=== PATIENT | male | born 1980 | race Caucasian/White ===

== ENCOUNTER 2021-03-10 17:13 | Emergency (ER) | payer OTHER, SELFPAY ==
--- NOTE | ~2021-03-10 | CT_ITS ---
EXAMINATION: CT cervical spine wo con DATE: 03/10/2021 17:44 INDICATION: Neck pain after fall TECHNIQUE: Computed tomography (CT) of the cervical spine was performed without intravenous contrast. The dose-length product was 448 mGy-cm. Automated exposure control and iterative reconstruction tech nique were employed. COMPARISON: None FINDINGS: There are mild uncinate degenerative changes at C6-7 and C7-T1. There is mild dextrocurvatu re of the cervical spine. Odontoid process within normal limits. No evidence for perched facet. Strai ghtening of cervical lordosis. Mild disc narrowing at C5-6 and C6-7. No acute fracture or traumatic m alalignment. Lung apices are normal. No significant paraspinal soft tissue abnormality. IMPRESSION: 1. No acute abnormality of the cervical spine. 2: Mild cervical spondylosis. Reviewed, dictated and finalized at location A.
--- NOTE | ~2021-03-10 | CT_ITS ---
EXAMINATION: CT BRAIN W/O DATE: 03/10/2021 17:44 INDICATION: Seizure. Fall. Head laceration. TECHNIQUE: Computed tomography (CT) of the head was performed without intravenous contrast. The dose- length product was 681.00 mGy-cm. Automated exposure control and iterative reconstruction technique w ere employed. COMPARISON: No prior studies for comparison. FINDINGS: Normal brain parenchymal volume for age. Normal archuleta-white differentiation. No acute intrac ranial hemorrhage, infarction, mass or mass effect. There is left parietal scalp swelling. No ventriculomegaly or midline shift. Midline sagittal images demonstrate a normal corpus callosum, c raniovertebral junction and sella turcica. Basilar cisterns are patent. Paranasal sinuses and mastoids are pneumatized. No depressed skull fractures. IMPRESSION: 1. No acute intracranial abnormality. Reviewed, dictated and finalized at location A.
[2021-03-10 17:04] VITALS: O2SAT 98
[2021-03-10 17:20] VITALS: BP 172/86; PULSE 111; RESP 17; TEMP 36.9; O2SAT 95
--- NOTE | 2021-03-10 17:22 | ECG_ITS ---
Measurements Intervals [place] Rate: 104 P: 94 IN: 254 QRS: 38 QRSD: 7 T: 186 QT: 387 QTc: 510 Interpretive Statements SINUS TACHYCARDIA LEFT ATRIAL ENLARGEMENT RIGHT BUNDLE BRANCH BLOCK BASELINE ARTIFACT- I, II, III, AVR, AVL, AVF, V1-V6 ABNORMAL ECG Electronically Signed On 03-10-2021 20:00:18 CDT by Julio Woods D.O.
--- NOTE | 2021-03-10 17:26 | ED.GENADULT ---
HPI - General Adult General Chief complaint: Seizure Stated complaint: SEIZURE Source: patient History of Present Illness HPI narrative: Patient is a 41 y/o male brought in by EMS for seizure. He reportedly was in a comic book store, had a seizure and fell. He struck his head and has laceration on left side of his occipital scalp. He also complains of left side tongue pain. He states that he does not have recollection of the fall, but does recall being at a comic book store. He states that he has history of seizure, but has not had recent seizure. He is not on any meds for seizure currently. His last Tetanus shot was 1 year ago. Related Data Allergies Allergy/AdvReac Type Severity Reaction Status Date / Time No Known Allergies Allergy Mild Unverified 04/08/12 19:39 Review of Systems Constitutional: Constitutional: Denies chills, Denies fever(s), Reports headache(s) and Denies weakness Eyes: Eyes: Denies blurry vision ENT: Reports headache(s), Reports mouth pain (left side tongue pain) and Denies neck pain Cardiovascular: Cardiovascular: Denies chest pain and Denies dyspnea Respiratory: Respiratory: Denies cough and Denies dyspnea Gastrointestinal: Gastrointestinal: Denies abdominal pain, Denies diarrhea, Denies nausea and Denies vomiting Genitourinary: Genitourinary: Denies hematuria and Denies dysuria Musculoskeletal: Musculoskeletal: Denies back pain and Denies neck pain Neurologic: Reports as per HPI, Denies headache(s), Reports convulsions and Denies weakness PMFSH Past Medical History Medical History Seizure disorder Surgical History Surgical History History of ileostomy Social History Social History Smoking status: Never smoker Exam Const: General: no acute distress and well developed Orientation/consciousness: oriented to person, oriented to place, oriented to time and patient oriented x3 HENMT: Head: normocephalic Ears: external ears normal General nose exam: Normal external nose present Mouth: Yes tongue abnormal (swelling and bruise on left side of tongue, no laceration) Eyes: General: appearance normal, both eyes and all related structures Conjunctivae: conjunctivae normal Neck: Neck: normal visual inspection and full ROM Chest: Chest palpation & inspection: normal inspection of the chest and no tenderness Resp: Effort & Inspection: normal respiratory effort Auscultation: clear to auscultation bilaterally Cardio: Rate: tachycardic Rhythm: regular rhythm GI: Inspection: other (ileostomy in right lower abdomen) GI Palp: No abdominal tenderness and Yes Soft to palpation Skin: General skin exam: normal color and turgor normal Trauma: laceration (left occipital scalp) Neuro: General: oriented to person, oriented to place, oriented to time and patient oriented x3 Cranial nerves: Yes CN's II-XII intact bilaterally Cognition (Neuro): normal cognition Speech: normal speech Motor exam (neuro): 5/5 motor strength present throughout Sensory Exam: normal sensation Coordination: [id number] test normal and pqid-qh-movb test normal Extrem: General: normal to inspection, full ROM and no pedal edema Psych: Appearance: grossly normal Mental Status: mental status grossly normal Affect: normal affect Course Reevaluation(s) Reevaluation #1: Patient wants to leave instead of being admitted. He will leave AMA. He is awake, alert and competent to make medical decision for himself. Date: 03/10/21 Consultations Consultation #1: Discussed with RADHA Mena, who agrees to admit to Dr. Ramires. Date: 03/10/21 Time: 18:37 Consultation #2: Discussed with Dr. Grimm, who recommends EEG, starting on Keppra 500 mg bid. He will consult. Date: 03/10/21 Time: 18:47 Vital Signs Vital signs: Vital Signs Pulse Oximetry 98 03/10/21 17:04 Temperat
[2021-03-10 17:46] VITALS: BP 163/112; PULSE 101; RESP 12; O2SAT 98
[2021-03-10 18:15] LABS: Basophils Absolute Auto 0.1 K/mm3 (0.0-0.1); Basophils Percent Auto 0.7 % (0.2-1.2); Eosinophils Absolute Auto 0.3 K/mm3 (0-0.3); Eosinophils Percent Auto 2.6 % (0-4.4); Hematocrit 40.1 % (42.0-52.0); Hemoglobin 13.9 g/dL (14.0-18.0); Immature Granulocyte Percent A 2.6 % (0-0.5); Lymphocytes Percent Auto 19.7 % (18.3-44.2); Mean Corpuscular HGB Conc 34.7 g/dl (32-36); Mean Corpuscular Hemoglobin 30.4 pg (26-34); Mean Corpuscular Volume 87.7 fl (80-100); Mean Platelet Volume 10.1 fl (7.4-10.4); Monocytes Absolute Auto 0.8 K/mm3 (0.1-0.6); Monocytes Percent Auto 6.5 % (2.6-8.5); Neutrophils Absolute Auto 7.9 K/mm3 (1.3-6.7); Neutrophils Percent Auto 67.9 % (45.5-73.1); Platelet Count Result 247 k/mm3 (150-375); Red Blood Count 4.57 M/mm3 (4.6-6.20); Red Cell Distribution Width 12.8 % (11.5-14.5); White Blood Count 11.7 K/mm3 (4.5-10.0)
[2021-03-10 18:24] LABS: Lactic Acid Reflex 3.6 mmol/L (0.7-2.1)
[2021-03-10 18:25] LABS: Alanine Aminotransferase 45 U/L (4-50); Alkaline Phosphatase 63 U/L (38-126); Anion Gap 12 mmol/L (8-16); Aspartate Amino Transferase 58 U/L (17-59); Bilirubin,Total 0.6 mg/dL (0.2-1.3); Blood Urea Nitrogen 16 mg/dL (9-20); Calcium 9.8 mg/dL (8.4-10.2); Carbon Dioxide 25 mmol/L (22-30); Chloride 104 mmol/L (98-107); Estimated CRCL calculation 75 ml/min; Estimated Glomerular Filt Rate > 60; Glucose 91 mg/dL (75-110); Potassium 3.6 mmol/L (3.4-5.0); Sodium 141 mmol/L (137-145)
[2021-03-10 18:30] VITALS: BP 166/88; PULSE 98; RESP 14; O2SAT 99
[2021-03-10 18:49] LABS: Add Urine Microscopic? YES; Appearance Urine Cloudy (Clear); Bacteria Urine Trace /hpf; Bilirubin Urine Negative (Negative); Blood Urine 1+ (Negative); Color Urine Yellow (Yellow); Glucose Urine UA Negative (Negative); Ketones Urine Negative (Negative); Leukocyte Esterase Ur Negative LEU/UL (Negative); Mucus Urine Rare /lpf; Nitrate Urine Negative (Negative); Protein Urine 2+ mg/dL (Negative); RBC Urine 0-2 /hpf (0-2); Specific Grav Ur 1.015 (1.001-1.035); Urobilinogen Urine Negative mg/dL (<2.0); WBC Urine 0-3 /hpf
--- NOTE | 2021-03-10 19:00 | PC.NURSE ---
assumed care of pt. Report from Charlie HUNT.
--- NOTE | 2021-03-10 20:00 | PM.IMHP ---
H&P: HPI History of Present Illness Date/Time: 03/10/21 20:00 Chief Complaint: Acute Syncope and collapse. Narrative: This is a pleasant 41-year-old male with known history of seizure disorder and known ileostomy who presented to the hospital today after suffering a syncopal episode at a [employer] book store. He remarks that he suddenly felt very dizzy and lightheaded before passing out and suffering head trauma. The patient has not had a seizure for over 10 years and describes that he used to have similar symptoms right before he would have a seizure. He does report a left-sided tongue laceration although denies any loss of urine. He also denies any chest pain or shortness of breath tonight before passing out. The patient suffered a laceration of the left side of his occiptial scalp which has been stapled in the emergency room tonight. The patient denies any focal neurological symptoms, numbness, tingling, blurry vision, double vision, facial droop, slurred speech, headache, confusion, fevers, chills, neck stiffness, shortness of breath, cough, chest pain, abdominal pain, nausea, vomiting, hematuria, diarrhea, or rectal bleeding. He is no longer taking any antiepileptic medications. Brain CT was performed emergency room which was unremarkable. ER provider has consulted Neurology, Dr. Grimm who has asked that we admit the patient to the hospital and they will evaluate him tomorrow. The patient has verbalized to me that he is now asymptomatic and wants to sign out against medical advice. I have explained to the patient that it would be in his best interest to stay in the hospital overnight and have Neurology take a look at him tomorrow although the patient is adamant about leaving as he does not want to lose his job. He has no other complaints at this time. Review of Systems Review of Systems: All systems reviewed & are unremarkable except as noted in HPI and below PMFSH Past Medical History Medical History Seizure disorder Surgical History Surgical History History of ileostomy Social History Social History Smoking status: Never smoker Comments Family Medical history is reviewed and is noncontributory Meds Home Medications and Allergies Allergies Allergy/AdvReac Type Severity Reaction Status Date / Time No Known Allergies Allergy Mild Unverified 04/08/12 19:39 Vital Signs Vital Signs - 24 hr 03/10/21 17:04 03/10/21 17:20 03/10/21 17:46 Temperature 36.9 C Pulse Rate 111 H 101 H Respiratory Rate 17 12 Blood Pressure 172/86 H 163/112 H Pulse Oximetry 98 95 98 03/10/21 18:30 Temperature Pulse Rate 98 Respiratory Rate 14 Blood Pressure 166/88 H Pulse Oximetry 99 Exam Const: General: cooperative, healthy appearing, no acute distress, alert and awake Nutritional Appearance: well nourished Orientation/consciousness: patient oriented x3 HENMT: Head: scalp lesion (L Occipital scalp laceration that has been stapled) General nose exam: Normal external nose present Face and sinus: normal facial exam Mouth: Yes oropharynx normal and Yes other (Small left-sided tongue laceration) Eyes: Pupils: Equal, round and reactive pupils present EOM: EOMs intact bilaterally Neck: Neck: supple and no JVD Thyroid: thyroid normal Lymphatic: lymphadenopathy not noted Resp: Effort & Inspection: normal respiratory effort Auscultation: clear to auscultation bilaterally Cardio: Rate: regular rate Rhythm: regular rhythm Heart sounds: no murmurs GI: Inspection: normal to inspection Auscultation: normal bowel sounds Skin: General skin exam: normal color and no rashes or lesions noted Neuro: General: patient oriented x3 Cranial nerves: Yes CN's II-XII intact bilaterally and Yes Equal, round and reactive pupils present Speech: normal speech Motor exam
[2021-03-10 21:13] LABS: Reflex Lactic Acid Yes or No Add Lactic
[2021-03-10 21:15] VITALS: BP 147/81; PULSE 88; RESP 19; O2SAT 97
== END 2021-03-10 21:15 | disposition left against medical advice (07) ==
LOC: ANHED 18:12 → ANH3MEDSUR 21:05
PROVIDERS: Emergency Provider Emergency Medicine
DX: S01.01XA Laceration without foreign body of scalp, initial encounter (principal); G40.909 Epilepsy, unspecified, not intractable, without status epilepticus; Z93.2 Ileostomy status; R00.0 Tachycardia, unspecified; I45.10 Unspecified right bundle-branch block; R94.31 Abnormal electrocardiogram [ECG] [EKG]; W18.39XA Other fall on same level, initial encounter
CPT/HCPCS: 12002; 36415; 70450; 72125; 80053; 81001; 83605; 85025; 93005; 99284

== ENCOUNTER 2022-01-15 12:01 | Emergency (ER) | payer OTHER, SELFPAY ==
[2022-01-15] VITALS (16 sets, daily range): BP systolic 131–150; BP diastolic 75–88; PULSE 100–131; RESP 11–22; TEMP 37.3; O2SAT 97–100
--- NOTE | ~2022-01-15 | CT_ITS ---
EXAMINATION: CT brain wo con, CT cervical spine wo con EXAM DATE: 01/15/2022 12:37 INDICATION: Fall, head injury, seizure. TECHNIQUE: Spiral CT of the head was performed without contrast. Axial, coronal and sagittal images were reviewed. Spiral CT of the cervical spine was performed without contrast. Axial images were rev iewed. Coronal and sagittal reformatted images were also reviewed. The dose-length product (DLP) fo r this examination was 605.33 (accession [id number]), 434.39 (accession [id number]) mGy-cm. The exposure was tailored according to patient size, and iterative reconstruction (ASIR) was used as additional dose reduction technique. Comparison is made to prior examination from 03/09/2021. FINDINGS: HEAD CT: There is no acute intraparenchymal hemorrhage. No evidence of intraparenchymal brain mass l esion. No evidence of acute infarction. There is no mass effect or midline shift. There is no obstru ctive hydrocephalus suspected. There are no extra-axial collections. There are no acute calvarial f ractures. The orbits are unremarkable. Small left posterior scalp contusion. The visualized sinuses and mastoid air cells are well aerated. CERVICAL CT: There is no evidence of acute cervical fracture. The odontoid process is intact. Pre- dens space is normal. Prevertebral soft tissue is normal. There are no soft tissue abnormalities id entified. There is no disc space widening or traumatic vertebral body subluxation suspected. Mild t o moderate lower cervical disc disease, mild cervical arthropathy. A detailed level by level evaluat ion of spondylosis can be added as addendum if requested. IMPRESSION: 1. No acute intracranial findings or cervical fracture. 2. Small left posterior scalp contusion. Reviewed, dictated and finalized at location A. LEADER IMPRESSION: 1. No acute intracranial findings or cervical fracture. 2. Small left posterior scalp contusion.
[2022-01-15 12:10] LABS: Glucose Point of Care 84 mg/dl (65-105)
--- NOTE | 2022-01-15 12:10 | ECG_ITS ---
Measurements Intervals [place] Rate: 116 P: 59 [place]: 147 QRS: 96 QRSD: 114 T: 47 QT: 333 QTc: 464 Interpretive Statements SINUS TACHYCARDIA RIGHT AXIS DEVIATION INCOMPLETE RIGHT BUNDLE BRANCH BLOCK ABNORMAL ECG Electronically Signed On 01-15-2022 13:11:44 [employer] by Julio Woods D.O.
--- NOTE | 2022-01-15 12:11 | PC.NURSE ---
Pt states he has had seizures in the past, several years ago but cant remember a specific diagnosis and isnt currently on medications for seizure
[2022-01-15 13:21] LABS: Basophils Absolute Auto 0.1 K/mm3 (0.0-0.1); Basophils Percent Auto 0.4 % (0.2-1.2); Eosinophils Absolute Auto 0.1 K/mm3 (0-0.3); Eosinophils Percent Auto 1.1 % (0-4.4); Hematocrit 42.9 % (42.0-52.0); Hemoglobin 15.5 g/dL (14.0-18.0); Immature Granulocyte Absolute 0.09 K/mm3 (0.00-0.031); Immature Granulocyte Percent A 0.7 % (0-0.5); Lymphocytes Percent Auto 13.9 % (18.3-44.2); Mean Corpuscular HGB Conc 36.1 g/dl (32-36); Mean Corpuscular Hemoglobin 30.8 pg (26-34); Mean Corpuscular Volume 85.3 fl (80-100); Mean Platelet Volume 9.7 fl (7.4-10.4); Monocytes Absolute Auto 0.8 K/mm3 (0.1-0.6); Monocytes Percent Auto 6.4 % (2.6-8.5); Neutrophils Absolute Auto 9.5 K/mm3 (1.3-6.7); Neutrophils Percent Auto 77.5 % (45.5-73.1); Platelet Count Result 240 k/mm3 (150-375); Red Blood Count 5.03 M/mm3 (4.6-6.20); Red Cell Distribution Width 12.8 % (11.5-14.5); White Blood Count 12.3 K/mm3 (4.5-10.0)
[2022-01-15 13:26] LABS: Add Urine Microscopic? YES; Appearance Urine Clear (Clear); Bilirubin Urine Negative (Negative); Blood Urine Negative (Negative); Color Urine Yellow (Yellow); Glucose Urine UA Negative (Negative); Ketones Urine Negative (Negative); Leukocyte Esterase Ur Negative LEU/UL (Negative); Mucus Urine Rare /lpf; Nitrate Urine Negative (Negative); Protein Urine 2+ mg/dL (Negative); RBC Urine 0-2 /hpf (0-2); Specific Grav Ur 1.016 (1.001-1.035); Squamous Epithelial Cell Urine Rare /hpf (Few); Urobilinogen Urine Negative mg/dL (<2.0); WBC Urine 0-3 /hpf
--- NOTE | 2022-01-15 13:26 | ED.GENADULT ---
HPI - General Adult General Chief complaint: Seizure Stated complaint: possible seizure Time Seen by Provider: 01/15/22 12:57 Source: patient, EMS and RN notes reviewed Limitations: no limitations History of Present Illness HPI narrative: 41-year-old male with remote history of seizures presents to the emergency department after having a fall and subsequent seizure at [facility]. Patient states he was walking around [facility] and had a fall struck his head. Patient is unsure of how long the seizure lasted. Patient states he has not taken his seizure meds in approximately 15 years. Patient states that he stopped taking his meds on his own. Patient denies taking any diabetic medications and states he is not diabetic. Patient states prior to the fall he was feeling fine. Patient states that after the fall he has no complaint of pain and feels back to his baseline. Related Data Home Medications Medication Instructions Recorded Confirmed ergocalciferol (vitamin D2) 01/15/22 01/15/22 Allergies Allergy/AdvReac Type Severity Reaction Status Date / Time No Known Allergies Allergy Mild Verified 01/15/22 12:12 Review of Systems Review of Systems: CONSTITUTIONAL: Denies fever, chills, or sweats. EYES: Denies visual changes, redness, or discharge. ENT: Denies rhinorrhea, congestion, sore throat, or otalgia. CARDIOVASCULAR: Denies chest pain, palpitations, or edema. RESPIRATORY: Denies cough or dyspnea. GASTROINTESTINAL: Denies abdominal pain, nausea, vomiting, or diarrhea. GENITOURINARY: Denies dysuria or hematuria. SKIN: Injury to posterior scalp MUSCULOSKELETAL: Denies back pain, joint pain, or myalgia. NEUROLOGIC: Seizure-like activity after head injury PSYCHIATRIC: Denies anxiety or depression. PMFSH Past Medical History Medical History (Updated 01/15/22 @ 14:17 by Bernardo Martinez MD) Seizure disorder Surgical History Surgical History (Updated 03/11/21 @ 02:38 by Moreno RamiresMD) H/O ileostomy History of ileostomy Social History Social History Smoking status: Never smoker Exam Narrative: APPEARANCE: Well appearing, no pain, no distress, well-nourished. HEAD: normocephalic, injury to posterior scalp, contusion/abrasion without laceration. Bleeding resolved EYES: PERRLA/EOMI, conjunctivae clear. NOSE: Normal no drainage EARS:TMS clear with good light reflex. THROAT: Pharynx clear, no exudate. NECK: Supple. No adenopathy, no masses. RESPIRATORY: Airway patent, respirations nonlabored. Clear to auscultation bilaterally, no rales, rhonchi, wheezing. CARDIOVASCULAR: Regular rate and rhythm without murmurs rubs or gallops. ABDOMINAL: Soft, nontender, nondistended, normal bowel sounds MUSCULOSKELETAL: Moves all extremities. Strength/ROM intact, No edema, No calf tenderness. NEURO: Alert. Cranial nerves II through XII intact. Good gait. Good coordination SKIN: Warm, dry. Normal Color PSYCHIATRIC: Normal affect/mood. Course Reevaluation(s) Reevaluation #1: Patient was updated on the results of his work-up including labs and imaging. Patient was able to ambulate in the emerge department without issue. Etiology of the patient's fall and seizure were discussed. Patient does feel improved, blood sugars are stable. Patient is unsure why he fell but the head injury could be the eliciting event of the seizure. Patient was aggressive close follow-up with his primary care physician all question concerns were addressed. Patient was in no distress at time of discharge from the emergency department. Vital Signs Vital signs: Vital Signs Temperature 99.2 F 01/15/22 12:03 Pulse Rate 120 H 01/15/22 12:03 Respiratory Rate 20 01/15/22 12:03 Blood Pressure 150/85 H 01/15/22 12:03 Pulse Oximetry 99 01/15/22 12:03 Temperature 99.2 F 01/15/22 12:03 Pulse Rate 100 01/15/22 14:32 Respiratory Rate 16 01/15/22 14:32 Blood Pressure 131/88 01/15/22
[2022-01-15 13:31] LABS: Alanine Aminotransferase 41 U/L (4-50); Albumin Level 4.8 g/dL (3.5-5.1); Alkaline Phosphatase 59 U/L (38-126); Anion Gap 12 mmol/L (8-16); Aspartate Amino Transferase 47 U/L (17-59); Blood Urea Nitrogen 10 mg/dL (9-20); Calcium 9.5 mg/dL (8.4-10.2); Carbon Dioxide 25 mmol/L (22-30); Chloride 103 mmol/L (98-107); Estimated CRCL calculation 85 ml/min; Estimated Glomerular Filt Rate > 60; Glucose 107 mg/dL (65-110); Potassium 3.3 mmol/L (3.4-5.0); Sodium 140 mmol/L (137-145)
[2022-01-15 13:32] LABS: Partial Thromboplastin Time 28.1 SECONDS (22.3-36.8)
--- NOTE | 2022-01-15 14:03 | PC.NURSE ---
Pt given meal
[2022-01-15 14:32] LABS: Glucose Point of Care 138 mg/dl (65-105)
== END 2022-01-15 14:34 | disposition home or self-care (01) ==
PROVIDERS: Emergency Provider Emergency Medicine
DX: G40.909 Epilepsy, unspecified, not intractable, without status epilepticus (principal); S00.03XA Contusion of scalp, initial encounter; Z91.128 Patient's intentional underdosing of medication regimen for other reason; T50.906A Underdosing of unspecified drugs, medicaments and biological substances, initial encounter; I45.10 Unspecified right bundle-branch block; R00.0 Tachycardia, unspecified; W18.39XA Other fall on same level, initial encounter
CPT/HCPCS: 36415; 70450; 72125; 80053; 81001; 82948; 85025; 85610; 85730; 93005; 99284